=== PATIENT | male | born 1965 | race Caucasian/White ===

== ENCOUNTER 2017-09-13 10:14 | Outpatient (CLI) | payer MEDICARE, MEDICAID ==
--- NOTE | 2017-09-13 12:37 | ULT ---
SCROTAL ULTRASOUND: 09/13/2017 HISTORY: Testicular cancer. COMPARISON: 02/18/2016 TECHNIQUE: Multiplanar jones-scale sonographic imaging of the scrotal contents obtained with Doppler interrogatio n of the right testicle, including color-flow and spectral analysis. FINDINGS: The left testicle is surgically absent. The right testicle measures 2.6 x 3.7 x 2.3 cm. The right e pididymis measures 1.3 x 0.8 x 0.6 cm. There is a small epididymal head cyst, measuring 3 mm. There is a small right hydrocele. There is normal blood flow in the right testicle, with no evidence for a right testicular mass. There are a few punctate, scattered microcalcifications noted within the ri ght testicle. IMPRESSION: Stable scrotal ultrasound, as detailed above. POS: [facility]
== END 2017-09-13 10:15 | disposition home or self-care (01) ==
LOC: ULT 10:14
PROVIDERS: ATTEND Urology
DX: C62.92 Malignant neoplasm of left testis, unspecified whether descended or undescended (principal)
CPT/HCPCS: 76870; 93976

== ENCOUNTER 2017-09-29 13:52 | Outpatient (CLI) | payer MEDICARE, MEDICAID ==
--- NOTE | 2017-09-29 16:55 | RAD ---
PA AND LATERAL CHEST: History: Testicular cancer. Comparison: 11-17-16 FINDINGS: The lung beebe remain clear. No infiltrate or nodule seen. Heart and mediastinum unremarkable. Natalia us structures are unremarkable. IMPRESSION: Chest is unremarkable and unchanged. POS: [facility]
--- NOTE | 2017-09-29 17:15 | ULT ---
ABDOMINAL ULTRASOUND: Indications: History of left testicular cancer. History of horseshoe kidney. There is a request to as sess for abdominal adenopathy. FINDINGS: Abdominal ultrasound is not the exam of choice to assess for abdominal adenopathy. CT abdomen is yumiko mmended to assess for abdominal adenopathy. Gallbladder has a normal appearance. No evidence of gallstones identified. Common duct is normal jr norman. Aorta is partially imaged and appears unremarkable where visualized. IVC is partially imaged and appears unremarkable. The liver and spleen appear unremarkable. Pancreas is mostly obscured. Both ki dneys are imaged and appear unremarkable with no hydronephrosis. No definite adenopathy seen by ultrasound. IMPRESSION: 1. Unremarkable abdominal ultrasound. No adenopathy identified by ultrasound. Recommend abdominal CT as the preferred evaluation to assess for abdominal adenopathy. POS: [facility]
== END 2017-09-29 13:53 | disposition home or self-care (01) ==
LOC: SCSULT 13:52
PROVIDERS: ATTEND Urology
DX: C62.92 Malignant neoplasm of left testis, unspecified whether descended or undescended (principal)
CPT/HCPCS: 71046; 76700

== ENCOUNTER 2017-10-20 13:53 | Outpatient (CLI) | payer MEDICARE, MEDICAID ==
[2017-10-20 15:35] LABS: Bilirubin Negative (Negative); Blood, Urine Negative (Negative); Clarity CLEAR (Clear); Glucose, Urine (Dipstick) Negative (Negative); Hemoglobin 14.8 g/dL (14.0-18.0); Leukocyte Negative (Negative); Mean Corpuscular HGB CONC 33.9 g/dL (32.0-36.0); Mean Corpuscular Hemoglobin 32.1 pg (27.0-31.0); Mean Corpuscular Volume 94.6 fl (80.0-94.0); Nitrite Negative (Negative); Platelet Count 215 thou/uL (130-400); Protein, Urine (Dipstick) Negative (Neg-Trace); RBC Distribution Width 11.8 % (11.5-14.5); Red Blood Cell (RBC) Count 4.62 mill/uL (4.70-6.10); Specific Gravity, Urine 1.008 (1.002-1.036); Urobilinogen 0.2 mg/dL (0.2-1.0); White Blood Cell (WBC) Count 6.9 thou/uL (4.8-10.8); pH, Urine 7.5 (5.0-9.0)
[2017-10-20 15:37] LABS: Bacteria/HPF None Seen HPF (None Seen); Hyaline Casts/LPF 0-3 HYALINE CAST LPF (0-3 Hyaline); RBC/HPF 0-3 HPF (0-3); Squamous Epithelial None Seen HPF (0-3); WBC/HPF None Seen HPF (0-3)
[2017-10-20 15:53] LABS: Anion Gap 11 mmol/L (10-20); BUN (Urea Nitrogen) 8 mg/dL (8.9-20.6); Calc. Creatinine Clearance 0 mL/min (70-130); Calcium 9.4 mg/dL (7.8-10.44); Carbon Dioxide 28 mmol/L (22-29); Chloride 98 mmol/L (98-107); Estimated GFR-MDRD Greater than 90; Glucose 84 mg/dL (70-105); Potassium 4.3 mmol/L (3.5-5.1); Sodium 133 mmol/L (136-145)
[2017-10-20 15:54] LABS: Prothrombin Time 13.3 SEC (12.0-14.7)
== END 2017-10-20 13:54 | disposition home or self-care (01) ==
LOC: LABBT 13:53
PROVIDERS: ATTEND Urology
DX: Z01.818 Encounter for other preprocedural examination (principal); N40.1 Benign prostatic hyperplasia with lower urinary tract symptoms; R39.14 Feeling of incomplete bladder emptying
CPT/HCPCS: 80048; 81001; 85027; 85610; 85730; 87086

== ENCOUNTER 2017-10-26 10:38 | Outpatient (CLI) | payer MEDICARE, MEDICAID | END 2017-10-26 10:39 | disposition home or self-care (01) | LOC: LABBT 10:38 | PROVIDERS: ATTEND Urology | DX: Z01.818 Encounter for other preprocedural examination (principal); N40.1 Benign prostatic hyperplasia with lower urinary tract symptoms; R39.14 Feeling of incomplete bladder emptying | CPT/HCPCS: 86850; 86900; 86901 ==

== ENCOUNTER 2017-11-01 05:59 | Observation (INO) | payer MEDICARE, MEDICAID ==
[2017-10-20 14:21] VITALS: BMI 26.9
[2017-11-01] MEDS ORDERED: Fentanyl 100 MCG/2 ML VIAL ONE (06:31)
[2017-11-01] MEDS ORDERED: Levofloxacin 500 mg/D5W 100 ml Premix Bag ONE (06:42)
[2017-11-01] MEDS ORDERED: CEFAZOLIN/Water 2 GM/20 ML SYRINGE ONE (07:15)
[2017-11-01] MEDS ORDERED: HYDROcodone/Acetaminophen 5/325 mg Tablet PO PRN ×2 (09:34)
[2017-11-01] MEDS ORDERED: Mag-Al 1200 mg/1200 mg/30 ML UDCUP PO PRN (09:34)
[2017-11-01] MEDS ORDERED: Bisacodyl 10 MG SUPP PR PRN (09:34)
[2017-11-01] MEDS ORDERED: Zolpidem Tartrate 5 MG TAB PO PRN (09:34)
[2017-11-01] MEDS ORDERED: Acetaminophen 500 MG TAB PO PRN (09:34)
[2017-11-01] MEDS ORDERED: hydrALAZINE 20 MG/ML VIAL SLOW IVP PRN ×2 (09:34)
[2017-11-01] MEDS ORDERED: diphenhydrAMINE 50 MG/ML VIAL IVP PRN (09:34)
[2017-11-01] MEDS ORDERED: Morphine 4 MG/ML Carpuject IVP PRN (09:34)
[2017-11-01] MEDS ORDERED: cefTRIAXone\\ROCEPHIN 1 GM in Sodium Chloride 0.9% 100 ML IVPB SCH (09:45)
[2017-11-01 10:02] LABS: #Lymphocytes 0.4 thou/uL (1.20-3.40); #Monocytes 0.2 thou/uL (0.11-0.59); #Neutrophils 5.3 thou/uL (1.40-6.50); %Basophils 0.2 % (0.0-1.0); %Eosinophils 0.5 % (0.0-10.0); %Lymphocytes 7.2 % (21.0-51.0); %Monocytes 3.1 % (0.0-10.0); %Neutrophils 89.1 % (42.0-75.0); Hemoglobin 13.3 g/dL (14.0-18.0); Mean Corpuscular HGB CONC 33.7 g/dL (32.0-36.0); Mean Corpuscular Hemoglobin 32.4 pg (27.0-31.0); Mean Corpuscular Volume 96.2 fl (80.0-94.0); Mean Platelet Volume 6.1 fL (7.4-10.4); Platelet Count 214 thou/uL (130-400); RBC Distribution Width 11.8 % (11.5-14.5); Red Blood Cell (RBC) Count 4.11 mill/uL (4.70-6.10); White Blood Cell (WBC) Count 5.9 thou/uL (4.8-10.8)
[2017-11-01 10:21] LABS: Anion Gap 8 mmol/L (10-20); BUN (Urea Nitrogen) 7 mg/dL (8.9-20.6); Calc. Creatinine Clearance 149 mL/min (70-130); Calcium 8.1 mg/dL (7.8-10.44); Carbon Dioxide 24 mmol/L (22-29); Chloride 105 mmol/L (98-107); Estimated GFR-MDRD Greater than 90; Glucose 94 mg/dL (70-105); Potassium 4.3 mmol/L (3.5-5.1); Sodium 133 mmol/L (136-145)
[2017-11-01] MEDS ORDERED: Morphine 4 MG/ML VIAL SLOW IVP PRN ×2 (10:24→10:27)
[2017-11-01] MEDS: cefTRIAXone\\ROCEPHIN 1 GM, Syringe 0.4 ML in Sterile Water 9.6 ML SLOW IVP SCH (10:42)
[2017-11-01] MEDS: Sodium Chloride 0.9% 1,000 ML IV SCH ×2 (10:43→23:08)
[2017-11-01] MEDS ORDERED: PROPOFOL 200 MG/20 ML VIAL ONE (12:13)
[2017-11-01] MEDS ORDERED: Lidocaine 1% PF 5 ML VIAL ONE (12:13)
[2017-11-01] MEDS ORDERED: Glycopyrrolate 0.2 MG/ML 5 ML SYRINGE ONE (12:13)
[2017-11-01] MEDS ORDERED: Dexamethasone 20 MG/5 ML VIAL ONE (12:13)
--- NOTE | 2017-11-01 13:51 | OP ---
DATE OF SERVICE: 11/01/2017 PREOPERATIVE DIAGNOSES: 1. A 52-year-old male with history of BPH, incomplete void. 2. History of stage I seminoma, status post left radical orchiectomy. POSTOPERATIVE DIAGNOSES: 1. A 52-year-old male with history of BPH, incomplete void. 2. History of stage I seminoma, status post left radical orchiectomy. PROCEDURE: Cystoscopy, transurethral resection, vaporization of the prostate, meatal dilatation, with Maritza sounds. SURGEON: Dr. Moriah Nuñez. ANESTHESIA: General. COMPLICATIONS: None apparent. DISPOSITION: To recovery room in stable condition. SPECIMEN: TUR prostate chips. ESTIMATED BLOOD LOSS: Approximately 100 mL INTRAVENOUS FLUIDS: 700 mL DRAINS: 24 Chinese 30 mL with 40 mL insufflated into the balloon secured on CBI. INDICATIONS FOR THE PROCEDURE AND HISTORY: Mr. Conrad is a 52-year-old male with history of stage I seminoma, status post left radical orchiectomy whom I have been following. The patient's initial postvoid residual 192 mL, prior history of urinary retention of 400 mL postop urinary retention. He underwent a cystoscopy, urodynamics demonstrating normal capacity, obstructive voiding pattern, with some component of uninhibited contraction. The patient presents today for transurethral resection of prostate. Risks and complications including, but not limited to bleeding, pain, infection, injury to adjacent organs, stricture formation, bladder neck contracture, clot retention, possible secondary procedure, injury to adjacent organs such as urethra, bladder, perioperative morbidity and mortality, PE, NH, CVA was reviewed with the patient in detail and they desired to proceed without reservation. DESCRIPTION OF THE PROCEDURE: After an informed consent is signed, the patient is taken to the operating room, placed in a dorsal lithotomy position with the genital area prepped and draped in the usual surgical sterile fashion. A 21- Chinese cystoscope was utilized for cystoscopy, which passed without difficulty. Prostatic urethra was entered demonstrating moderate BPH component. There was a high median bar. The bladder was entered, which demonstrated bilateral ureteral orifices in normal anatomical location. There was no evidence of bladder stones, tumors, or lesions appreciated. At this time, we did switch over to a 26-Chinese resectoscope using gyrus bipolar. His lateral lobes were taken down in a classic Apolonia fashion. On the lateral lobes, there appeared to be quite attenuated, we encountered pretty readily, the prostate capsule and the lateral lobe, most of his obstructive component is coming from the apical ventral component. As it was quite thin laterally varicosities of the prostatic capsule. We encounter some oozing, which acquired cauterization with a gyrus loop. We did take his prostate down at the apical ventrolateral component. As his prostate seems somewhat vascular hindering visualization, I did switch over to an ACMI 26 resectoscope with a button vaporization probe. Using this modality, we cauterized the bed of the resection efficiently. We did vaporize residual apical/obstructing tissues using the button probe. At the end of the procedure, all prostatic chips were evacuated with the Airseed evacuator, a wide bladder neck was noted with resolution of obstructive component. The Lovell cumbersome bleed was in the right lateral prostatic urethra, which appeared to be attenuated. We did utilize the button probe to obtain good hemostasis of the entire resected prostatic urethra resection. A 24 -Chinese three-way Bajwa catheter was passed without difficulty. A 40 mL was insufflated. I did not place the Bajwa on traction as the CBI appeared to be quite clear on the rate. He will be observed overnight with continuous bladder irrigation. Anticipate voiding trial in the morning. BAILEY
[2017-11-01] MEDS ORDERED: Famotidine 40 MG/4 ML VIAL SLOW IVP SCH (21:00)
[2017-11-01] MEDS ORDERED: Famotidine 20 MG TAB PO SCH (21:30)
[2017-11-01] MEDS: Docusate 100 MG CAP PO SCH (21:33)
[2017-11-02 05:16] LABS: #Eosinphils 0.1 thou/uL (0.0-0.7); #Lymphocytes 1.1 thou/uL (1.20-3.40); #Monocytes 1.3 thou/uL (0.11-0.59); #Neutrophils 7.4 thou/uL (1.40-6.50); %Basophils 0.1 % (0.0-1.0); %Lymphocytes 11.1 % (21.0-51.0); %Monocytes 12.8 % (0.0-10.0); Hemoglobin 13.4 g/dL (14.0-18.0); Mean Corpuscular HGB CONC 33.9 g/dL (32.0-36.0); Mean Corpuscular Hemoglobin 32.3 pg (27.0-31.0); Mean Corpuscular Volume 95.3 fl (80.0-94.0); Mean Platelet Volume 6.1 fL (7.4-10.4); Platelet Count 213 thou/uL (130-400); RBC Distribution Width 11.8 % (11.5-14.5); Red Blood Cell (RBC) Count 4.14 mill/uL (4.70-6.10); White Blood Cell (WBC) Count 9.9 thou/uL (4.8-10.8)
[2017-11-02 05:24] LABS: Anion Gap 8 mmol/L (10-20); BUN (Urea Nitrogen) 5 mg/dL (8.9-20.6); Calc. Creatinine Clearance 141 mL/min (70-130); Calcium 8.5 mg/dL (7.8-10.44); Carbon Dioxide 28 mmol/L (22-29); Chloride 104 mmol/L (98-107); Estimated GFR-MDRD Greater than 90; Glucose 97 mg/dL (70-105); Potassium 3.9 mmol/L (3.5-5.1); Sodium 136 mmol/L (136-145)
--- NOTE | 2017-11-02 08:08 | PRG ---
DATE OF SERVICE: 11/02/2017 SUBJECTIVE: The patient without complaints, doing well. OBJECTIVE: VITAL SIGNS: Stable, afebrile. Family at bedside. ABDOMEN: Soft, nontender, nondistended. GENITOURINARY: CBI was held this morning demonstrating duglas pink tinged urine with no clots. CBI t ubing, flushed with immediate clearing. Therefore, a voiding trial initiated. PERTINENT LABORATORY DATA: CBC, H&H stable at 13.4. Renal function stable, creatinine 0.61. IMPRESSION AND PLAN: 1. Mr. Conrad is a 52-year-old male with history of testicular seminoma, status post orchiectomy: 2. History of benign prostatic hypertrophy with history of incomplete void, postoperative day #1 sta tus post transurethral resection of prostate/transurethral vaporization, voiding trial initiated leonie ayers. Pending patient's clinical course afternoon. DISPOSITION: Pending. If able to void with subsequent clearing of urine, we will discharge this aft ernoon.
[2017-11-02] MEDS: Docusate 100 MG CAP PO SCH (08:47)
[2017-11-02] MEDS ORDERED: Tamsulosin HCl 0.4 MG CAP PO SCH ×2 (09:00)
[2017-11-02] MEDS ORDERED: Famotidine 20 MG TAB PO SCH (09:00)
[2017-11-02] MEDS ORDERED: Atorvastatin Calcium 10 MG TAB PO SCH (09:00)
[2017-11-02] MEDS ORDERED: Furosemide 20 MG TAB PO SCH (09:00)
[2017-11-02] MEDS ORDERED: Simvastatin 20 MG TAB PO SCH (09:00)
[2017-11-02] MEDS ORDERED: Lisinopril 20 MG TAB PO SCH (09:00)
[2017-11-02] MEDS: Sodium Chloride 0.9% 1,000 ML IV SCH (10:42)
[2017-11-02] MEDS: cefTRIAXone\\ROCEPHIN 1 GM, Syringe 0.4 ML in Sterile Water 9.6 ML SLOW IVP SCH (10:42)
--- NOTE | 2017-11-02 14:29 | EKG ---
Test Reason : PREOP Blood Pressure : / mmHG Vent. Rate : 077 BPM Atrial Rate : 077 BPM P-R Int : 186 ms QRS Dur : 138 ms QT Int : 412 ms P-R-T Axes : 070 -75 064 degrees QTc Int : 466 ms Normal sinus rhythm Right atrial enlargement Right bundle branch block Left anterior fascicular block Bifascicular block Left ventricular hypertrophy with repolarization abnormality Possible Anterolateral infarct (cited on or before 06-FEB-2015) Abnormal ECG When compared with ECG of 06-FEB-2015 12:54, Questionable change in initial forces of Anteroseptal leads Confirmed by DR. Clara TONEY ([id number]) on 11/02/2017 2:29:25 PM Referred By: ALEJANDRO Confirmed By:DR. Clara TONEY
[2017-11-02 16:07] VITALS: BP 114/73; TEMP 99.4
[2017-11-02] MEDS ORDERED: Multivit, Therapeutic 1 TAB PO SCH (21:00)
--- NOTE | 2017-11-02 22:35 | DIS ---
DATE OF ADMISSION: 11/01/2017 DATE OF DISCHARGE: 11/02/2017 CONDITION: Stable. DISPOSITION: Home with self-care, with family support. DISCHARGE MEDICATIONS: 1. May resume home meds except aspirin to be held. 2. Ciprofloxacin 500 mg 1 p.o. b.i.d. for 5 days. 3. Colace 100 mg 1 p.o. b.i.d. p.r.n. 4. [place] 5/325, #40 one to two p.o. q.6-8 hours p.r.n. BRIEF HOSPITAL COURSE: Mr. Conrad is a pleasant 52-year-old male whom I seen for history of testicular carcinoma in remission. He has history of BPH with incomplete void. He underwent transurethral resection, vaporization of the prostate uneventfully. His CBI was held on postop day #1 with pink tinged urine. Subsequently, a Bajwa catheter was removed for a voiding trial, in which he has voided 500-600 mL increments with no significant postvoid residual. Voided urine remains clear, duglas pink tinge. The patient is doing well, not requiring pain medication and passing flatus. Labs are stable. The patient is stable to be discharged. Disposition home to self-care. Followup appointment with Urology next Wednesday at 2:45/2:30 for a postoperative assessment peak flow PVR check. BAILEY
== END 2017-11-02 17:42 | disposition home or self-care (01) ==
LOC: SDC 05:59 → SURG B 09:34
PROVIDERS: ADMIT Urology; ATTEND Urology
PROC: 0V508ZZ Destruction of Prostate, Via Natural or Artificial Opening Endoscopic (ICD-10-PCS; principal; 2017-11-01)
DX: N40.1 Benign prostatic hyperplasia with lower urinary tract symptoms (principal); R39.14 Feeling of incomplete bladder emptying; I10 Essential (primary) hypertension; Q63.1 Lobulated, fused and horseshoe kidney; Z90.79 Acquired absence of other genital organ(s); Z98.890 Other specified postprocedural states
CPT/HCPCS: 52648; 80048 ×2; 85025 ×2; 88305; 93005; 96374; 96376; G0378; 36415; 93010; A4216; J0696; J1100; J1956; J2001; J2704; J3010

== ENCOUNTER 2018-04-18 10:56 | Outpatient (CLI) | payer MEDICARE, OTHER ==
[2018-04-18] MEDS ORDERED: Iopamidol 370 76% 100 ML VIAL ONE (13:30)
--- NOTE | 2018-04-18 13:32 | RAD ---
CHEST TWO VIEWS: Comparison: 09-29-17 History: Testicular cancer. FINDINGS: Azygos fissure is again noted. Normal cardiac silhouette. Pulmonary vessels and hilum are normal. No consolidation or mass. No pneumothorax or osseous abnormalities. IMPRESSION: No acute cardiopulmonary process. POS: [facility]
--- NOTE | 2018-04-18 15:04 | CT ---
PRE AN DPOSTCONTRAST ENHANCED CT IMAGES ABDOMEN AND PELVIS: HISTORY: Testicular carcinoma, left-sided orchiectomy. FINDINGS: Pre- and postcontrast-enhanced CT images of the abdomen and pelvis demonstrate no definite evidence o f pulmonary parenchymal lesions in the lung bases. No evidence of free intraperitoneal air is seen. The liver and spleen are unremarkable. The gallbladder and pancreas are unremarkable. Adrenal gland s unremarkable. The patient has a horseshoe kidney. No evidence of periaortic lymphadenopathy is seen. Colonic diverticulosis is present. There is abnormal bladder wall thickening. This may represent changes of cystitis. IMPRESSION: Bladder wall thickening; otherwise, no significant intraabdominal or pelvic pathology is seen. POS: [facility]
== END 2018-04-18 10:57 | disposition home or self-care (01) ==
LOC: BICCT 10:56
PROVIDERS: ATTEND Urology
DX: C62.92 Malignant neoplasm of left testis, unspecified whether descended or undescended (principal); Q63.1 Lobulated, fused and horseshoe kidney; N40.1 Benign prostatic hyperplasia with lower urinary tract symptoms; N32.89 Other specified disorders of bladder
CPT/HCPCS: 36415; 71046; 74178; 80053; 81001; 82105; 83615; 84702; 87086

== ENCOUNTER 2018-07-18 06:29 | Outpatient (CLI) | payer MEDICARE, MEDICAID ==
[2018-07-18 13:03] LABS: Bilirubin Negative (Negative); Blood, Urine Negative (Negative); Clarity CLEAR (Clear); Glucose, Urine (Dipstick) Negative (Negative); Hemoglobin 14.4 g/dL (14.0-18.0); Leukocyte Negative (Negative); Mean Corpuscular HGB CONC 33.4 g/dL (32.0-36.0); Mean Corpuscular Hemoglobin 32.2 pg (27.0-31.0); Mean Corpuscular Volume 96.7 fL (78.0-98.0); Mean Platelet Volume 6.8 fL (7.4-10.4); Nitrite Negative (Negative); Platelet Count 259 thou/uL (130-400); Protein, Urine (Dipstick) Negative (Neg-Trace); RBC Distribution Width 11.9 % (11.5-14.5); Red Blood Cell (RBC) Count 4.45 mill/uL (4.70-6.10); Specific Gravity, Urine 1.007 (1.002-1.036); Urobilinogen 0.2 mg/dL (0.2-1.0); White Blood Cell (WBC) Count 7.1 thou/uL (4.8-10.8); pH, Urine 7.5 (5.0-9.0)
[2018-07-18 13:05] LABS: Bacteria/HPF None Seen HPF (None Seen); Hyaline Casts/LPF 0-3 HYALINE CAST LPF (0-3 Hyaline); RBC/HPF 0-3 HPF (0-3); Squamous Epithelial None Seen HPF (0-3); WBC/HPF None Seen HPF (0-3)
[2018-07-18 13:21] LABS: Anion Gap 14 mmol/L (10-20); BUN (Urea Nitrogen) 9 mg/dL (8.4-25.7); Calc. Creatinine Clearance 0 mL/min (70-130); Calcium 9.6 mg/dL (7.8-10.44); Carbon Dioxide 27 mmol/L (22-29); Chloride 98 mmol/L (98-107); Estimated GFR-MDRD Greater than 90; Glucose 75 mg/dL (70-105); PTT 29.8 SEC (22.9-36.1); Potassium 4.3 mmol/L (3.5-5.1); Prothrombin Time 13.2 SEC (12.0-14.7); Sodium 135 mmol/L (136-145)
== END 2018-07-18 06:30 | disposition home or self-care (01) ==
LOC: LABBT 06:29
PROVIDERS: ATTEND Urology
DX: Z01.818 Encounter for other preprocedural examination (principal); C62.92 Malignant neoplasm of left testis, unspecified whether descended or undescended; Z12.5 Encounter for screening for malignant neoplasm of prostate; R39.14 Feeling of incomplete bladder emptying; N40.1 Benign prostatic hyperplasia with lower urinary tract symptoms
CPT/HCPCS: 80048; 81001; 85027; 85610; 85730; 87086; 93005; 93010

== ENCOUNTER 2018-08-01 08:44 | Day surgery (SDC) | payer MEDICARE, MEDICAID ==
[2018-07-18 11:21] VITALS: BMI 27.3
[2018-08-01] MEDS ORDERED: Levofloxacin 500 mg/D5W 100 ml Premix Bag ONE (09:29)
[2018-08-01] MEDS ORDERED: Fentanyl 100 MCG/2 ML VIAL ONE (13:16)
[2018-08-01] MEDS ORDERED: Midazolam HCl 2 mg/2 ml Vial ONE (13:17)
[2018-08-01] MEDS ORDERED: Oxybutynin 5 MG TAB ONE (14:32)
[2018-08-01] MEDS ORDERED: Phenazopyridine HCl 97.5 MG TABLET ONE ×2 (14:33)
--- NOTE | 2018-08-01 18:46 | OP ---
DATE OF PROCEDURE: 08/01/2018 PREOPERATIVE DIAGNOSES: 1. A 53-year-old male with history of seminoma status post left radical orchiectomy in remission. 2. History of benign prostatic hyperplasia status post transurethral resection of the prostate. 3. Bladder neck contracture. POSTOPERATIVE DIAGNOSES: 1. A 53-year-old male with history of seminoma status post left radical orchiectomy in remission. 2. History of benign prostatic hyperplasia status post transurethral resection of the prostate. 3. Bladder neck contracture. PROCEDURES PERFORMED: Cystoscopy, transurethral resection of bladder neck contracture, and 18-Slovenian Bajwa catheter placement. ANESTHESIA: General, LMA. COMPLICATIONS: None apparent. DISPOSITION: To recovery room in stable condition. EBL: Minimal. INDICATIONS FOR PROCEDURE AND HISTORY: Mr. Conrad is a 53-year-old male status post TURP/TUVP in October 2017. The patient underwent diagnostic cystoscopy demonstrating a bladder neck contracture, presents today for TUR bladder neck contracture. Risks and complications and indications for the procedure was reviewed with the patient and family in detail including, but not limited to, bleeding, pain, infection, injury to adjacent organs, urosepsis, and recurrent stricture formation, bladder neck contracture, and clot retention were reviewed. Questions answered to their satisfaction and desired to proceed. DESCRIPTION OF PROCEDURE: After an informed consent was signed, the patient taken to the operating room, placed in a dorsal lithotomy position with the genital area prepped and draped in the usual surgical sterile fashion. Broad-spectrum antibiotics and bilateral PRICSILLA hose SCDs were placed. We used a 17-Slovenian cystoscope, which demonstrated normal anterior urethra. There was a subtle bulbar stricture early; however, this was very early nonobstructing nor did it require treatment. The prostatic urethra demonstrated a good TUR defect. Again, noted is a bladder neck contracture, which appeared to be quite dense. A 0.35 Super Stiff wire was placed to the level of the bladder. At this time, we attempted to pass a Patience dilator over the guidewire; however, due to the dense nature, would not dilate. Therefore, using a 17-Slovenian cystoscope with guidewire in place, we passively dilated the bladder neck contracture with a 17-Slovenian sheath under direct visualization. Bladder was entered, which demonstrated normal bladder mucosa. No stones or no tumors were seen. UOs were well away from the bladder neck. At this time, we passed a 22-Slovenian and subsequently passed for direct dilatation. Subsequently, we passed a 26-Slovenian resectoscope, visual obturator was utilized and passed to the level of bladder with a guidewire assist. Subsequently, we used a Gyrus bipolar prostate loop to resect a bladder neck contracture, flushed to his TUR defect. He tolerated the procedure well. Edges were minimally cauterized with good hemostasis. I did not have to place the Bajwa catheter over guidewire with assist. All specimens were evacuated with Librato evacuator and an 18-Slovenian 3-way Bajwa catheter, there was 30 mL passed without any issues. CBI port was plugged, the catheter attached to leg bag, which demonstrated clear output. He tolerated the procedure well and transported to the recovery room in stable condition. He is discharged with ciprofloxacin for 5 days, Colace p.r.n., [place] 5/325, 30 p.r.n. He will follow up with me next for catheter removal. Regarding his seminoma pathologic T1, we will continue to monitor him for 6-month interval labs, chest x-ray, and abdominal ultrasound, scrotal ultrasound and abdominal ultrasound is due September 2018. [facility] ID[facility] [id number] [facility]
== END 2018-08-01 15:44 | disposition home or self-care (01) ==
LOC: SDC 08:44
PROVIDERS: ATTEND Urology
PROC: 0TBC8ZZ Excision of Bladder Neck, Via Natural or Artificial Opening Endoscopic (ICD-10-PCS; principal; 2018-08-01)
DX: N32.0 Bladder-neck obstruction (principal); I10 Essential (primary) hypertension; Q63.1 Lobulated, fused and horseshoe kidney; C62.92 Malignant neoplasm of left testis, unspecified whether descended or undescended; Z79.899 Other long term (current) drug therapy
CPT/HCPCS: 88307; J1956; J2250; J3010

== ENCOUNTER 2018-10-11 09:30 | Outpatient (CLI) | payer MEDICARE, MEDICAID ==
--- NOTE | 2018-10-11 10:49 | RAD ---
PA AND LATERAL CHEST: HISTORY: Malignant neoplasm of the left testis. COMPARISON: 04/18/2018 FINDINGS: The heart size is at the upper limits. The mediastinal structures are unremarkable. The lungs are c lear of infiltrates. No pulmonary nodules are identified. An azygous lobe is incidentally again see n. IMPRESSION: No active intrathoracic disease. Stable examination. POS: [facility]
--- NOTE | 2018-10-11 14:01 | ULT ---
TESTICULAR ULTRASOUND: HISTORY: History of neoplasm of left testicle. TECHNIQUE: Multiplanar jones-scale and color Doppler images were obtained in a testicular/scrotal ultrasound. Sp ectral analysis of the Doppler waveform of the right testicle was performed. FINDINGS: The left testicle has been removed. The right testicle is normal in echogenicity without focal lesio ns and demonstrates normal internal flow. There is a small right epididymal cyst, measuring 3 mm in size. No abnormality is seen on the left side of the scrotum. No enlarged inguinal lymph nodes are seen. IMPRESSION: 1. Status post left orchiectomy. 2. Small right epididymal cyst. POS: [facility]
--- NOTE | 2018-10-11 14:03 | ULT ---
COMPLETE ABDOMINAL ULTRASOUND: Comparison: None. History: Lymphadenopathy. Comparison: CT abdomen/pelvis, 04-18-18. Technique: Multiplanar grayscale and color doppler images were obtained in a complete abdominal ultra sound. FINDINGS: The liver is normal in echogenicity without focal lesions or intrahepatic ductal dilatation. The gall bladder is normal without stones, sludge, gallbladder wall thickening or pericholecystic fluid. The c ommon bile duct is normal measuring 4 mm. The aorta and inferior vena cava are normal in caliber. The visualized portions of the pancreas are u nremarkable. Spleen is normal in echogenicity without focal lesions and measures 9.0 cm in length. The patient has a horseshoe kidney without evidence of hydronephrosis or shadowing calculi. The moiet ies of the kidneys measure 7.2 and 10.1 cm in length on the right and left, respectively. IMPRESSION: Horseshoe kidney; otherwise unremarkable exam. POS: [facility]
== END 2018-10-11 09:31 | disposition home or self-care (01) ==
LOC: ULT 09:30
PROVIDERS: ATTEND Urology
DX: C62.92 Malignant neoplasm of left testis, unspecified whether descended or undescended (principal); R39.14 Feeling of incomplete bladder emptying; N40.1 Benign prostatic hyperplasia with lower urinary tract symptoms; N32.0 Bladder-neck obstruction; Q63.1 Lobulated, fused and horseshoe kidney; N50.3 Cyst of epididymis; Z90.79 Acquired absence of other genital organ(s)
CPT/HCPCS: 36415; 71046; 76700; 76870; 80053; 81001; 82105; 83615; 84702; 93976

== ENCOUNTER 2019-12-04 13:53 | Outpatient (CLI) | payer MEDICARE, MEDICAID ==
--- NOTE | 2019-12-04 14:58 | ULT ---
Renal sonogram HISTORY: Incomplete bladder emptying FINDINGS: Horseshoe configuration of the kidneys is present. Right renal portion measures up to 8.2 c m and the left 11.8 cm. No hydronephrosis or mass evident. No retroperitoneal fluid. Urinary bladder shows no focal abnormalities. Post void residual is calculated at 37 cc. IMPRESSION : Horseshoe kidney. Small postvoid urinary bladder residual, 37 cc.
--- NOTE | 2019-12-04 16:23 | RAD ---
CHEST 2 VIEWS: HISTORY: Malignant neoplasm of left testis. COMPARISON: 10/11/2018. FINDINGS: Heart size is normal. The lungs are clear. IMPRESSION: No acute intrathoracic disease. No evidence of metastasis. Stable from 10/11/2018. POS: [facility]
--- NOTE | 2019-12-04 17:53 | ULT ---
TESTICULAR ULTRASOUND: 12/04/19 HISTORY: There is history of left orchiectomy due to malignant neoplasm left testicle. FINDINGS: The right testicle appears unremarkable. Right testicle is homogeneous. No evidence of testicular mas s. Small right hydrocele. The epididymis appears unremarkable. Color Doppler and spectral analysis demonstrates blood flow to the right testicle. IMPRESSION: 1. Unremarkable right testicle. 2. Small right hydrocele. POS: [facility]
== END 2019-12-04 13:54 | disposition home or self-care (01) ==
LOC: BICULT 13:53
PROVIDERS: ATTEND Urology
DX: C62.92 Malignant neoplasm of left testis, unspecified whether descended or undescended (principal); N40.1 Benign prostatic hyperplasia with lower urinary tract symptoms; R39.14 Feeling of incomplete bladder emptying; N43.3 Hydrocele, unspecified; Q63.1 Lobulated, fused and horseshoe kidney
CPT/HCPCS: 36415; 71046; 76770; 76870; 80053; 81001; 82105; 83615; 84153; 84702; 93976

== ENCOUNTER 2021-05-13 09:49 | Outpatient (CLI) | payer MEDICARE, MEDICAID | END 2021-05-13 09:50 | disposition home or self-care (01) | LOC: BICULT 09:49 | PROVIDERS: ATTEND Urology | DX: C62.92 Malignant neoplasm of left testis, unspecified whether descended or undescended (principal); Q63.1 Lobulated, fused and horseshoe kidney; Z12.5 Encounter for screening for malignant neoplasm of prostate | CPT/HCPCS: 71046; 76770; 76870; 80053; 81001; 82105; 83615; 84702; 93976; G0103; 36415 ==

== ENCOUNTER 2021-05-23 11:12 | Outpatient (CLI) | payer MEDICARE, MEDICAID ==
[2021-05-23 13:32] LABS: Hemoglobin 14.9 g/dL (13.5-17.5); Mean Corpuscular HGB CONC 33.6 g/dL (32.0-36.0); Mean Corpuscular Hemoglobin 30.9 pg (27.0-33.0); Mean Corpuscular Volume 91.9 fl (81.2-95.1); Mean Platelet Volume 8.9 fl (7.4-10.4); Platelet Count 317 10x3/uL (150-450); RBC Distribution Width 13.2 % (11.5-14.5); Red Blood Cell (RBC) Count 4.82 10x6/uL (4.32-5.72); White Blood Cell (WBC) Count 6.3 10x3/uL (3.5-10.5)
[2021-05-23 13:41] LABS: Bilirubin Neg (Negative); Blood, Urine Negative (Negative); Clarity Clear (Clear); Glucose, Urine (Dipstick) Normal (Negative); Ketone, Urine Negative (Negative); Leukocyte Negative (Negative); Nitrite Negative (Negative); Protein, Urine (Dipstick) Negative (Neg-Trace); Specific Gravity, Urine 1.015 (1.002-1.036); Urobilinogen Normal mg/dL (Less than 2); pH, Urine 6.5 (5.0-9.0)
[2021-05-23 13:43] LABS: Anion Gap 16 mmol/L (10-20); BUN (Urea Nitrogen) 9 mg/dL (8.4-25.7); Calc. Creatinine Clearance 0 mL/min (70-130); Calcium 9.6 mg/dL (7.8-10.44); Carbon Dioxide 25 mmol/L (22-29); Chloride 99 mmol/L (98-107); Glucose 69 mg/dL (70-105); PTT 28.5 sec (22.0-33.0); Potassium 4.1 mmol/L (3.5-5.1); Prothrombin Time 11.5 sec (9.5-12.1); Sodium 136 mmol/L (136-145)
[2021-05-23 14:00] LABS: Bacteria/HPF None Seen HPF (None Seen); RBC/HPF None Seen HPF (0-3); Squamous Epithelial 0-3 HPF (0-3); WBC/HPF None Seen HPF (0-3)
[2021-05-23 23:19] LABS: SARS-CoV-2 PCR by NAA Not Detected (NotDetected)
== END 2021-05-23 11:13 | disposition home or self-care (01) ==
LOC: LABBT 11:12
PROVIDERS: ATTEND Urology
DX: Z01.818 Encounter for other preprocedural examination (principal); Z12.5 Encounter for screening for malignant neoplasm of prostate; C62.92 Malignant neoplasm of left testis, unspecified whether descended or undescended; N50.89 Other specified disorders of the male genital organs; R39.14 Feeling of incomplete bladder emptying; Q63.1 Lobulated, fused and horseshoe kidney; Z90.79 Acquired absence of other genital organ(s); Z20.822 Contact with and (suspected) exposure to COVID-19
CPT/HCPCS: 80048; 81001; 85027; 85610; 85730; 87086; 93005; U0003; U0005; 93010

== ENCOUNTER 2021-05-28 07:24 | Day surgery (SDC) | payer MEDICARE, MEDICAID ==
[2021-05-26 12:55] VITALS: BMI 25.8
[2021-05-28] MEDS ORDERED: Bupivacaine 0.25% HCL 30 ML VIAL ONE (09:12)
[2021-05-28] MEDS ORDERED: Bacitracin Zinc Ointment 30 gm TUBE ONE (09:12)
[2021-05-28] MEDS ORDERED: Fentanyl 100 MCG/2 ML VIAL ONE ×2 (09:14→09:26)
[2021-05-28] MEDS ORDERED: Ondansetron PF 4 MG/2 ML Vial ONE (09:40)
[2021-05-28] MEDS ORDERED: Dexamethasone 20 MG/5 ML VIAL ONE (09:40)
[2021-05-28] MEDS ORDERED: Lidocaine 1% PF 5 ML VIAL ONE (09:40)
[2021-05-28] MEDS ORDERED: PROPOFOL 200 MG/20 ML VIAL ONE (09:40)
[2021-05-28] MEDS ORDERED: Levofloxacin 500 mg/D5W 100 ml Premix Bag ONE (10:24)
[2021-05-28] MEDS ORDERED: Phenazopyridine HCl 100 MG TAB ONE ×2 (12:16)
[2021-05-28] MEDS ORDERED: Oxybutynin 5 MG TAB ONE (12:16)
== END 2021-05-28 14:20 | disposition home or self-care (01) ==
LOC: SDC 07:24
PROVIDERS: ATTEND Urology
PROC: 0TBC8ZZ Excision of Bladder Neck, Via Natural or Artificial Opening Endoscopic (ICD-10-PCS; principal; 2021-05-28)
PROC: 0VT90ZZ Resection of Right Testis, Open Approach (ICD-10-PCS; 2021-05-28)
PROC: 0VT90ZZ Resection of Right Testis, Open Approach (ICD-10-PCS; 2021-05-28)
PROC: 0VTJ0ZZ Resection of Right Epididymis, Open Approach (ICD-10-PCS; 2021-05-28)
PROC: 0VBF0ZZ Excision of Right Spermatic Cord, Open Approach (ICD-10-PCS; 2021-05-28)
DX: C62.11 Malignant neoplasm of descended right testis (principal); N32.0 Bladder-neck obstruction; I10 Essential (primary) hypertension; Q63.1 Lobulated, fused and horseshoe kidney; Z79.82 Long term (current) use of aspirin; Z79.899 Other long term (current) drug therapy; Z90.79 Acquired absence of other genital organ(s)
CPT/HCPCS: 88305; 88309; J0690; J1100; J1956; J2405; J2704; J3010; S0020

== ENCOUNTER 2022-01-08 10:56 | Outpatient (CLI) | payer MEDICARE, MEDICAID | END 2022-01-08 10:57 | disposition home or self-care (01) | LOC: BICRAD 10:56 | PROVIDERS: ATTEND Urology | DX: C62.12 Malignant neoplasm of descended left testis (principal) | CPT/HCPCS: 36415; 71046; 80053; 81001; 83615; 84270; 84403; 84702; 85025 ==

== ENCOUNTER 2022-03-09 11:42 | Outpatient (CLI) | payer MEDICARE, OTHER ==
[~2022-03-09 11:42] MED LIST: Iopamidol 370 76% 100 ML VIAL ONE
== END 2022-03-09 11:43 | disposition home or self-care (01) ==
LOC: BICCT 11:42
PROVIDERS: ATTEND Urology
DX: C62.11 Malignant neoplasm of descended right testis (principal); C62.12 Malignant neoplasm of descended left testis; M85.9 Disorder of bone density and structure, unspecified
CPT/HCPCS: 71260; 74178; Q9967

== ENCOUNTER 2023-04-12 08:27 | Outpatient (CLI) | payer MEDICARE, MEDICAID ==
[2023-04-12] MEDS ORDERED: Iopamidol 370 76% 100 ML VIAL ONE (09:51)
== END 2023-04-12 08:28 | disposition home or self-care (01) ==
LOC: BICCT 08:27
PROVIDERS: ATTEND Urology
DX: C62.11 Malignant neoplasm of descended right testis (principal); C62.12 Malignant neoplasm of descended left testis
CPT/HCPCS: 74178; 80053; 81001; 82105; 82565; 82670; 83615; 84270; 84403; 84702; 85014; 85018; 87086; G0103; 36415; Q9967

== ENCOUNTER 2024-06-07 08:50 | Outpatient (CLI) | payer MEDICARE, MEDICAID ==
[2024-06-07] MEDS ORDERED: Iopamidol 370 76% 100 ML VIAL ONE (14:57)
== END 2024-06-07 08:51 | disposition home or self-care (01) ==
LOC: BICCT 08:50
PROVIDERS: ATTEND Urology
DX: Z12.5 Encounter for screening for malignant neoplasm of prostate (principal); C62.12 Malignant neoplasm of descended left testis; R79.89 Other specified abnormal findings of blood chemistry; Z00.00 Encounter for general adult medical examination without abnormal findings; Z13.1 Encounter for screening for diabetes mellitus; E78.00 Pure hypercholesterolemia, unspecified; G40.909 Epilepsy, unspecified, not intractable, without status epilepticus; I10 Essential (primary) hypertension
CPT/HCPCS: 36415; 71260; 74178; 82565; Q9967; 80053; 80061; 80185; 82105; 82670; 83615; 84270; 84403; 84702; 85014; 85018; G0103